=== PATIENT | male | born 1940 | race Caucasian/White ===

== ENCOUNTER → 2022-09-09 | Outpatient (CLI) | payer OTHER | END | disposition home or self-care (01) | LOC: RADPV 14:05 | PROVIDERS: ATTEND Chiropractor | DX: I51.7 Cardiomegaly (principal); I48.91 Unspecified atrial fibrillation | CPT/HCPCS: 93005; 93306 ==

== ENCOUNTER → 2023-04-14 | Outpatient (CLI) | payer OTHER | END | disposition home or self-care (01) | LOC: RADPV 09:35 | PROVIDERS: ATTEND Chiropractor | DX: I08.1 Rheumatic disorders of both mitral and tricuspid valves (principal); I48.91 Unspecified atrial fibrillation | CPT/HCPCS: 93005; 93306 ==